=== PATIENT | female | born 1995 | race American Indian/Alaskan Native ===

== ENCOUNTER 2018-08-26 16:19 | Emergency (ER) | payer OTHER ==
--- NOTE | 2018-08-26 16:39 | Emergency Department Report ---
Chief Complaint: Abdominal Pain Stated Complaint: ABD PAIN Time Seen by Provider: 08/26/18 16:35 - HPI History of Present Illness: Pt is c/o periumbilical abdominal pain that began two days ago states feels like cramping N/V pt is currently 8 weeks gestation, pt was seen at [place] and [facility] [place] the last two weeks and had a transvaginal US, she states she was diagnosed with a threatened some mild vaginal spotting no sick contacts no diarrhea, no fever, dysuria /A1 is not taking vitamins MSE complete MSE screening note: Focused history and physical exam performed. Due to findings the following was ordered: UA, hcg quant, ABO/Rh, transvaginal US ED Disposition for MSE Condition: Stable Instructions: Abdominal Pain (ED)
[2018-08-26] MEDS ORDERED: NACL 0.9% 1000 ML 1,000 ML IV ONE ×2 (16:55→18:18)
[2018-08-26] MEDS ORDERED: ZOFRAN IV ONE (16:55)
--- NOTE | 2018-08-26 16:56 | Emergency Department Report ---
ED HPI - General Chief complaint: Abdominal Pain Stated complaint: ABD PAIN Time Seen by Provider: 08/26/18 16:35 Source: EMS Mode of arrival: Wheelchair Limitations: No Limitations - History of Present Illness MD Complaint: abdominal pain -: Gradual, week(s) Location: abdomen Radiation: suprapubic Severity: mild Consistency: constant Improves with: none Worsens with: none Associated symptoms: nausea/vomiting Vaginal bleeding: none :: Yes Pre- care: none - Related Data : 3 Para: 1 Ab: 1 Previous Rx's Medication Instructions Recorded Last Taken Type Ondansetron [Zofran Odt] 4 mg PO Q8HR PRN #10 tab.rapdis 08/26/18 Unknown Rx Allergies Allergy/AdvReac Type Severity Reaction Status Date / Time No Known Allergies Allergy Unverified 08/26/18 16:37 ED Review of Systems ROS: Stated complaint: ABD PAIN Other details as noted in HPI Comment: All other systems reviewed and negative Constitutional: denies: chills, fever Eyes: denies: eye pain ENT: denies: ear pain Respiratory: denies: see HPI Cardiovascular: denies: chest pain Endocrine: denies: flushing Gastrointestinal: as per HPI, abdominal pain, nausea, vomiting. denies: diarrhea, constipation, hematemesis, melena, hematochezia Genitourinary: as per HPI, other (PREG). denies: urgency, dysuria, frequency, hematuria, discharge, abnormal menses, dyspareunia Musculoskeletal: denies: back pain Skin: denies: rash Neurological: denies: weakness Psychiatric: denies: anxiety Hematological/Lymphatic: denies: easy bleeding ED Past Medical Hx - Past Medical History Previous Medical History?: No - Surgical History Past Surgical History?: No - Family History Family history: no significant - Social History Smoking Status: Current Every Day Smoker Substance Use Type: Marijuana - Medications Home Medications: Home Medications Medication Instructions Recorded Confirmed Last Taken Type Ondansetron [Zofran Odt] 4 mg PO Q8HR PRN #10 tab.rapdis 08/26/18 Unknown Rx ED Physical Exam - General Limitations: No Limitations General appearance: alert, in no apparent distress - Head Head exam: Present: atraumatic - Eye Eye exam: Present: normal appearance, PERRL, EOMI Pupils: Present: normal accommodation - ENT ENT exam: Present: normal exam, mucous membranes moist - Neck Neck exam: Present: normal inspection - Respiratory Respiratory exam: Present: normal lung sounds bilaterally - Cardiovascular Cardiovascular Exam: Present: regular rate - GI/Abdominal GI/Abdominal exam: Present: soft, normal bowel sounds. Absent: distended, tenderness, guarding, rebound, rigid, diminished bowel sounds, hyperactive bowel sounds, hypoactive bowel sounds, organomegaly, mass, bruit, pulsatile mass, h ernia - Rectal Rectal exam: Present: deferred - Extremities Exam Extremities exam: Present: normal inspection, full ROM - Back Exam Back exam: Present: normal inspection, full ROM - Neurological Exam Neurological exam: Present: alert, oriented X3, CN II-XII intact, normal gait - Psychiatric Psychiatric exam: Present: normal affect, normal mood - Skin Skin exam: Present: warm, dry, intact ED Course Vital Signs 08/26/18 08/26/18 16:34 18:40 Temperature 98.2 F Pulse Rate 95 H 65 Respiratory 18 16 Rate Blood Pressure 95/49 Blood Pressure 103/66 [Left] O2 Sat by Pulse 100 100 Oximetry - Reevaluation(s) Reevaluation #1: 08/26/18 18:03 7 WEEKS HAD BLOOD WORK, UA AND ULTRASOUND DONE AT [facility] [place] 2 W AGO SHE DID NOT FOLLOW UP WITH OBGYN CONRADO PAULINO RX NONE ED Medical Decision Making - Lab Data Result diagrams: 08/26/18 16:55 08/26/18 16:55 - Medical Decision Making Vital Signs 08/26/18 16:34 Temperature 98.2 F Pulse Rate 95 H Respiratory 18 Rate Blood Pressure 95/49 O2 Sat by Pulse 100 Oximetry Labs 08/26/18 08/26/18 08/26/18 16:55 16:55 16:55 WBC 12.1 H RBC 4.28 Hgb 10.1 Hct 31.8 MCV 74 L MCH 24 L MCHC 32 RDW 19.3 H Plt Count 359 Sodium 133 L Potassium 3.8 Chloride 97.1 L Carbon Dioxide 19 L Anion Gap 21 BUN 9 Creatinine 0.5 L Estimated GFR > 60 BUN/Creatinine Ratio 18 Glucose 86 Calcium 9.3 HCG, Quant [id number] H Critical care attestation.: If time is entered above; I have spent that time in minutes in the direct care of this critically ill patient, excluding procedure time. ED Disposition Clinical Impression: , Nausea/vomiting in Disposition: DC-01 TO HOME OR SELFCARE Is pt being admited?: No Does the pt Need Aspirin: No Condition: Stable Instructions: (ED) Prescriptions: Ondansetron [Zofran Odt] 4 mg PO Q8HR PRN #10 tab.rapdis PRN Reason: Vomiting Referrals: JAMIL INIGUEZ MD [Referring] - 3-5 Days Time of Disposition: 17:48
[2018-08-26 17:20] LABS: Hematocrit 31.8 % (30.3-42.9); Hemoglobin 10.1 gm/dl (10.1-14.3); Mean Corpuscular HGB Conc 32 % (30-34); Mean Corpuscular Volume 74 fl (79-97); Platelet Count 359 K/mm3 (140-440); Red Blood Count 4.28 M/mm3 (3.65-5.03); Red Cell Distribution Width 19.3 % (13.2-15.2)
[2018-08-26 17:30] LABS: BUN/Creatinine Ratio 18; Blood Urea Nitrogen 9 mg/dL (7-17); Calcium 9.3 mg/dL (8.4-10.2); Hemolysis Index 2
[2018-08-26 18:14] LABS: Bacteria,Urine 1+ /HPF (Negative); Bilirubin,Urine NEG (Negative); Blood,Urine NEG (Negative); Color,Urine Yellow (Yellow); Mucus,Urine 3+ /HPF
[2018-08-26 18:41] VITALS: BP 103/66
== END 2018-08-26 19:53 | disposition home or self-care (01) ==
LOC: ED 16:19
DX: O26.891 Other specified pregnancy related conditions, first trimester (principal); R10.9 Unspecified abdominal pain; O21.8 Other vomiting complicating pregnancy; Z3A.01 Less than 8 weeks gestation of pregnancy
CPT/HCPCS: 36415; 80048; 81001; 84702; 85027; 96361; 96374; 99284; J2405; J7030